=== PATIENT | male | born 1960 | race Caucasian/White ===

== ENCOUNTER 2018-01-17 15:06 | Observation (INO) ==
--- NOTE | 2018-01-17 15:16 | Emergency Department Note ---
Disposition Clinical Impression: Third degree heart block Disposition: Admitted As Inpatient Condition: Undetermined Referrals: Suleman Brown MD [Primary Care Provider] - Forms: ED Satisfaction Letter General Adult HPI - General Chief complaint: ED Arrhythmia/Palpitations Stated complaint: sob,dizzy,abnormal ekg Time Seen by Provider: 01/17/18 15:11 - Related Data Previous Rx's Medication Instructions Recorded Aspirin 81 mg PO DAILY 30 Days #30 tab.chew 12/16/17 HydrOXYzine 10 mg PO DAILY 30 Days #30 tablet 12/16/17 Allergies Allergy/AdvReac Type Severity Reaction Status Date / Time No Known Allergies Allergy Verified 01/17/18 15:43 Past Medical History - Past Medical History Medical history: Reports: no medical history Psychiatric history: Reports: no psych history - Social History Smoking Status: Never smoker Smokeless Tobacco Status: No Alcohol use: Reports: occasionally Drug use: Reports: none Course Vital Signs O2 Sat by Pulse Oximetry 99 01/17/18 15:38 Temperature 0 F L 01/17/18 15:39 Pulse Rate 46 01/17/18 15:39 Respiratory Rate 16 01/17/18 15:39 Blood Pressure 157/73 01/17/18 15:39 O2 Sat by Pulse Oximetry 99 01/17/18 15:39 Oxygen Delivery Oxygen Delivery Room Air Medical Decision Making - Lab Data Result diagrams: 01/17/18 15:15 Lab Results 01/17/18 Range/Units 15:15 WBC 7.3 (4.3-11.1) K/mcL RBC 4.66 (4.19-5.50) M/mcL Hgb 15.5 (12.9-16.9) g/dL Hct 45.2 (37.5-50.1) % MCV 97.0 (83.0-100.0) fL MCH 33.3 (28.0-33.3) pg MCHC 34.3 (31.6-35.5) g/dL RDW 13.7 (11.5-14.5) % Plt Count 255 (140-400) K/mcL MPV 9.7 (9.4-12.4) fL Immature Gran % 0.4 (0-4) % Seg Neutrophils % 65.9 % Lymphocytes % 19.0 % Monocytes % 11.9 % Eosinophils % 1.8 % Basophils % 1.0 % Neutrophils # 4.8 (1.6-8.9) K/mcL Lymphocytes # 1.4 (0.6-4.6) K/mcL Monocytes # 0.9 (0.0-1.3) K/mcL Eosinophils # 0.1 (0.0-0.6) K/mcL Basophils # 0.1 (0.0-0.2) K/mcL Attestation Statement - Attestation Attestation: I examined this patient and my medical decision-making was reviewed with the Resident Physician. I agree with the documented findings, disposition and treatment plan as described except to the extent set forth below. 57-year-old male presents to the emergency department because of recurring episodes of lightheadedness, dizziness and near syncope. Complains symptoms worsen when he exerts himself and has associated cold sensation in his hands with dyspnea. No chest pain or pressure. He has had a couple episodes of syncope. Denies fevers or chills. No nausea vomiting. No diaphoresis. Recent admission to the hospital for an STEMI but did not require catheterization. Had a normal stress test. Generally well-appearing male in no apparent distress. He is awake, alert and talkative. Mucous membranes are moist. Neck supple. No JVD. No carotid bruits. Chest is clear to auscultation bilaterally. Cardiac exam is regular, bradycardic. Chest wall nontender. Abdomen soft, nondistended and nontender. Extremities well perfused, warm and dry. EKG reveals complete arterial ventricular dissociation with third-degree heart block and a junctional escape of 44 with narrow complex. Case was discussed with Dr. Shon Ruelas who came to the ED, evaluated the patient and will be taken straight to the catheter lab for placement of permanent dual-chamber pacer. The high probability of a clinically significant, sudden or life threatening deterioration of the [cardiopulmonary] system(s) required my full and direct attention, intervention and personal management. The aggregate critical care time was [20] minutes. This time is in addition to time spent performing reported procedures but includes the following: [n] Data Review and interpretation [n] Patient assessment and monitoring of vital signs [n] Documentation [n] Medication orders and management
--- NOTE | 2018-01-17 15:19 | Emergency Department Note ---
Disposition Clinical Impression: Third degree heart block Disposition: Admitted As Inpatient Condition: Undetermined Forms: ED Satisfaction Letter Time of Disposition: 15:35 General Adult HPI - General Chief complaint: ED Arrhythmia/Palpitations Stated complaint: sob,dizzy,abnormal ekg Time Seen by Provider: 01/17/18 15:11 Source: patient Mode of arrival: wheelchair Limitations: no limitations Nursing Notes Reviewed: Yes Vital Signs Reviewed: Yes - History of Present Illness HPI Narrative: 57-year-old male arrives to the emergency department as a transfer from cardiology office. The patient was found to be in complete heart block at cardiology office on EKG. The patient states that he was recently discharged from a recent stent at here in the hospital for syncope. The patient was found to be bradycardic. He was started on hydroxyzine for anxiety at that time. The patient states he has been taking medication as he is supposed to. The patient states that he has had intermittent episodes of shortness of breath, generalized weakness as well as intermittent episodes where he becomes short of breath. The patient denies any chest pains associated with it. He denies any other associated complaints other than some intermittent dizziness. The patient went to his cardiology office visit today and as when they found that he was in third-degree heart block. The patient was not found to be hypotensive but he does feel lightheaded. He denies any other complaints at this time. - Related Data Previous Rx's Medication Instructions Recorded Aspirin 81 mg PO DAILY 30 Days #30 tab.chew 12/16/17 HydrOXYzine 10 mg PO DAILY 30 Days #30 tablet 12/16/17 Allergies Allergy/AdvReac Type Severity Reaction Status Date / Time No Known Allergies Allergy Verified 12/13/17 17:47 All systems ED: reviewed and negative except as stated. Constitutional: Denies: fever ENT ED: Denies: congestion Cardiovascular: Reports: palpitations, dyspnea on exertion, syncope. Denies: chest pain, edema Respiratory: Reports: dyspnea Gastrointestinal: Denies: abdominal pain Genitourinary: Denies: urgency Musculoskeletal: Denies: back pain Neurological: Denies: headache, weakness Past Medical History - Past Medical History Attestation: Yes The following information was validated with the patient. Source: patient Medical history: Reports: no medical history Surgical history: Reports: non-contributory Psychiatric history: Reports: no psych history - Social History Smoking Status: Never smoker Smokeless Tobacco Status: No Alcohol use: Reports: occasionally Drug use: Reports: none Physical Exam - General Limitations: no limitations General appearance: alert, in no apparent distress - Head Head exam: atraumatic, normocephalic, normal inspection - Eye Eye exam: Present: normal appearance, PERRL, EOMI - ENT ENT exam: normal exam, normal oropharynx, mucous membranes moist - Neck Neck exam: Present: normal inspection, full ROM, trachea midline - Chest Chest inspection: Present: normal inspection, symmetric chest wall rise - Respiratory Respiratory exam: Present: normal lung sounds bilaterally - Cardiovascular Cardiovascular exam: Present: bradycardia, normal heart sounds - Abdominal Exam Abdominal exam: Present: soft, Non-Tender. Absent: tenderness, distention, guarding, rebound, rigidity - Extremities Exam Extremities exam: Present: normal inspection, full ROM. Absent: tenderness, pedal edema - Back Exam Back exam: Present: normal inspection, full ROM. Absent: tenderness - Neurological Exam Neurological exam: Present: alert, oriented X3 - Skin Skin exam: Present: warm, dry, intact, normal color Medical Decision Making - MDM Narrative Medical decision making narrative: Cardiology consulted and will see patient. Will take patient to laborer/key man for pacemaker placement by Dr. Ruelas. Patient agrees to plan. Labs currently obtained and pending. Repeat EKG in the ED continues to demonstrate third degree block. Narrow complex here in the ED. - Medical Records Medical records reviewed: Yes I reviewed the patient's medical records. - EKG Data EKG #1 EKG attestation: Yes I reviewed and interpreted this EKG. EKG results narrative: Heart rate 44 bpm. Third degree heart block noted. no ST elevation or depression.
[2018-01-17 15:41] LABS: Basophils # 0.1 K/mcL (0.0-0.2); Eosinophils # 0.1 K/mcL (0.0-0.6); Eosinophils % 1.8 %; Hematocrit 45.2 % (37.5-50.1); Hemoglobin 15.5 g/dL (12.9-16.9); Immature Granulocytes % 0.4 % (0-4); Lymphocytes # 1.4 K/mcL (0.6-4.6); Mean Corpuscular HGB Conc 34.3 g/dL (31.6-35.5); Mean Corpuscular Hemoglobin 33.3 pg (28.0-33.3); Mean Platelet Volume 9.7 fL (9.4-12.4); Monocytes # 0.9 K/mcL (0.0-1.3); Monocytes % 11.9 %; Neutrophils # 4.8 K/mcL (1.6-8.9); Platelet Count 255 K/mcL (140-400); Red Blood Count 4.66 M/mcL (4.19-5.50); Red Cell Distribution Width 13.7 % (11.5-14.5); Segmented Neutrophils % 65.9 %
[2018-01-17] MEDS ORDERED: CeFAZolin Syr 2,000MG/20 ML 2,000 MG/20 ML SYRINGE IVPB ONE (15:45)
--- NOTE | 2018-01-17 15:50 | Cardiology Consult Note ---
<Tiki Awan - Last Filed: 01/17/18 15:48> Date of Encounter: 01/17/18 Time of Encounter: 15:48 Assessment and Plan (1) Third degree heart block Current Visit: Yes Status: Acute Patient in third degree heart block on EKG. Basic laboratory analysis with chest x-ray obtained in ER. Plan to place pacemaker and admit to medicine team for further observation. Patient agrees with this plan. Discussion w patient/family: The assessment and plan as outlined above was discussed with the patient and/or family members who expressed understanding and agreement. All questions were answered. Thank you for involving us in the care of your patient. Please call with any questions. History of Present Illness Consult date: 01/17/18 Consult reason: Complete Heart Block History of present illness: Mr. Broussard is a 57 year old male with significant PMHx of syncope and NSTEMI in 12/08 presenting with third degree heart block. Patient was seen in November for a syncopal episode and diagnosed with NSTEMI. Patient was following up with cardiology today and found to be in third degree heart block and sent to ED. Patient states for the past three days he has been more tired than normal and has not been able to walk up stairs. Denies chest pain, pressure, or palpitations. EKG completed in cardiology clinic and ED show third degree heart block with rate of 44BPM. Past Med Surg Social Fam HX - Past Medical History Attestation: Yes The following information was validated with the patient. Medical history: no medical history Psychiatric history: no psych history - Past Surgical History Surgical History: non-contributory - Social History Smoking Status: Never smoker Smokeless Tobacco Status: No Alcohol use: occasionally Drug use: none Medications and Allergies Aspirin 81 mg PO DAILY 30 Days #30 tab.chew 12/16/17 [Rx] HydrOXYzine 10 mg PO DAILY 30 Days #30 tablet 12/16/17 [Rx] 3 Allergy/AdvReac Type Severity Reaction Status Date / Time No Known Allergies Allergy Verified 01/17/18 15:43 All Systems Review: The remainder of the systems were reviewed and are negative - Constitutional Constitutional: fatigue, no fever(s), no weight gain, no weight loss - EENT Eyes: no blurred vision, no loss of vision - Cardiovascular Cardiovascular: as per HPI - Respiratory Respiratory: no cough, no dyspnea, no wheezing - Gastrointestinal Gastrointestinal: no abdominal pain, no diarrhea, no nausea - Musculoskeletal Musculoskeletal: no abnormal gait, no muscle weakness - Integumentary Integumentary: no rash - Neurological Neurological: no abnormal speech, no focal weakness Physical Examination Vital Signs, Last 4 Hours Temp Pulse Resp BP Pulse Ox 01/17/18 15:39 0 F L 46 16 157/73 99 01/17/18 15:38 99 General: Conversant, No Apparent Distress HEENT: Atraumatic, Normocephaly, Mucus Membranes Moist Neck: No JVD, Normal carotid pulses Cardiac: Normal S1 and S2, No Murmur, Other (bradycardic, regular rhythm ) Lungs: Normal Breath Sounds, No Wheeze, Rales, Rhonchi Neuro: Alert and responsive, No focal deficits noted Abdomen: Soft, Non-Tender Skin: No rashes noted on visualized skin Musculoskeletal: No Chest Wall Tenderness Extremities: No Clubbing, No Cyanosis, No Edema, Normal Pulses Results 01/17/18 15:15 Lab Results 01/17/18 15:15 WBC 7.3 Hgb 15.5 Hct 45.2 Plt Count 255 - EKG Interpretation EKG results cardiology: personally reviewed Consult Discharge Plan - Plan <Shon Ruelas - Last Filed: 01/17/18 17:27> Date of Encounter: 01/17/18 - Attending Attestation I examined this patient and my medical decision-making was reviewed with the Resident Physician. I agree with the documented findings, disposition and treatment plan as described except to the extent set forth below. Presents with complete heart block, previous history of syncope. Assessment and Plan Discussion w patient/family: The assessment and plan as outlined above was discussed with the patient and/or family members who expressed understanding and agreement. All questions were answered. Thank you for involving us in the care of your patient. Please call with any questions. History of Present Illness History of present illness: Mr. Broussard is a 57 year old male All Systems Review: The remainder of the systems were reviewed and are negative Results 01/17/18 15:15 01/17/18 15:15
[2018-01-17 15:51] LABS: INR 1.2
[2018-01-17 15:54] LABS: Activated Partial Thrombo Time 31.2 Seconds (26.0-36.0)
[2018-01-17 15:56] LABS: BUN/Creatinine Ratio 23 (6-26); Blood Urea Nitrogen 21 mg/dL (6-20); Calcium 9.6 mg/dL (8.6-10.3); Carbon Dioxide 25 mEq/L (23-29); Chloride 106 mEq/L (98-107); Glucose 106 mg/dL (70-105); Magnesium 2.2 mg/dL (1.6-2.6); Osmolality,Calculated 289 (280-300); Potassium 4.3 mEq/L (3.5-5.1); Sodium 138 mEq/L (136-145); eGFR For African Americans > 60 (> 60); eGFR For Non-African Americans > 60 (> 60)
[2018-01-17] MEDS ORDERED: 0.9 % Sodium Chloride 500 ML ONE (16:03)
[2018-01-17] MEDS ORDERED: Water for inj. (sterile) 10 ML IV ONE (16:03)
[2018-01-17] MEDS ORDERED: *HR* Midazolam HCl 2 MG/2 ML VIAL ONE (16:06)
[2018-01-17] MEDS ORDERED: *HR* FentaNYL (PF) 100 MCG/2 ML VIAL ONE (16:06)
--- NOTE | 2018-01-17 16:06 | Pre-Sedation Evaluation ---
Pre-sedation evaluation - Pre-sedation checklist Date of procedure: 01/17/18 Procedure: Pacemaker Recent Vitals: Last Vital Signs Temp 0 F L 01/17/18 15:39 Pulse 46 01/17/18 15:39 Resp 16 01/17/18 15:39 BP 157/73 01/17/18 15:39 Pulse Ox 99 01/17/18 15:39 H&P (including ROS) documented in medical record: Yes Previous reaction to sedatives/anesthetics: No Dietary Status: No solid food in preceding 4 hrs and no liquid in preceding 2 hrs Airway Assessment: Patient can open mouth completely, TMJ function normal Possible difficult airway: No ASA Classification *see protocol: CLASS II-Mild systemic disease Plan of Care: Pt appropriate candidate for procedure/moderate/conscious sedation , Risks/benefits of procedure/sedation discussed w/ patient/family
[2018-01-17] MEDS ORDERED: 0.9 % Sodium Chloride 1,000 ML ONE (16:07)
[2018-01-17 16:10] LABS: Thyroid Stimulating Hormone 2.538 mcIU/mL (0.340-5.600)
[2018-01-17 16:14] LABS: Troponin I 0.04 ng/mL (< 0.04)
[2018-01-17] MEDS ORDERED: Naloxone 0.4 MG/ML INJ IVP PRN (18:56)
[2018-01-17] MEDS ORDERED: *HR* LORazepam 2 MG/ML VIAL IVP PRN (19:03)
--- NOTE | 2018-01-17 19:39 | Internal Med History&Physical ---
<HilaryjeanmarielauraInderjit jose - Last Filed: 01/17/18 20:00> Date of Encounter: 01/17/18 Time of Encounter: 18:30 Internal Medicine - H&P: HPI Chief complaint: Palpitations/SOB Admitted From: Direct Admit Plans for Post Hospital Care: Home History of present illness: Mr. Broussard is a 57 year old male with no medical history presents from cardiology office to ED when it was discovered he had complete heart block on EKG. Patient states he has been increasingly short of breath, bradycardic, and fatigued over the past several weeks. Patient also reports he is under a lot of stress at home. Symptoms would lessen with rest but were exacerbated with mild exertion. Patient denies chest pain. Patient reported feelings of being lightheaded and dizzy as well. Patient denies recent illness, fever, chills, nausea, vomiting, headache, changes in vision, unusual bleeding, abdominal pain , diarrhea, constipation, numbness, tingling, pre-syncope, or syncope. Past Med Surg Social Fam HX - Past Medical History Source: patient, old records reviewed Medical history: no medical history Psychiatric history: anxiety - Past Surgical History Surgical History: non-contributory - Social History Smoking Status: Never smoker Smokeless Tobacco Status: No Alcohol use: occasionally Drug use: none Occupational status: employed Current living situation: Home Activity Level: Independent ambulation Recent Out of Country Travel Within the Last 8 Weeks: No Exposure or Possible Exposure to Illness During Travel: No - Family History Father Race: Family Member Ethnicity: Non- Living Status: Still Living Hx Family Cardiac Disorders: Yes (HTN, HLD, NE @ 70 yo w/stents) Mother Race: Family Member Ethnicity: Non- Living Status: Still Living Hx Family Neurologic Disorders: Yes (Dementia) Internal Medicine - H&P: Meds Aspirin 81 mg PO DAILY 30 Days #30 tab.chew 12/16/17 [Rx] HydrOXYzine 10 mg PO DAILY 30 Days #30 tablet 12/16/17 [Rx] 3 Allergy/AdvReac Type Severity Reaction Status Date / Time No Known Allergies Allergy Verified 01/17/18 15:43 All Systems PM: A 10-system review of systems was performed and is negative for pertinent findings except as documented above in the HPI. - Constitutional Constitutional: as per HPI, fatigue, weakness, no chills, no fever(s), no night sweats - EENT Eyes: no change in vision, no discharge, no pain, no photophobia Ears: no ear discharge, no ear pain, no tinnitus Nose, mouth and throat: no dysphagia, no nasal discharge, no neck pain, no sore throat - Breasts Breasts: as per HPI - Cardiovascular Cardiovascular ROS IM: as per HPI, dyspnea, dyspnea on exertion, irregular heart rhythm, lightheadedness, no chest pain, no diaphoresis, no palpitations, no syncope - Respiratory Respiratory: as per HPI, dyspnea, dyspnea on exertion, no cough, no wheezing, no excessive phlegm production - Gastrointestinal Gastrointestinal: no abdominal pain, no diarrhea, no hematemesis, no hematochezia, no melena, no nausea, no vomiting - Genitourinary Genitourinary ROS male: as per HPI - Musculoskeletal Musculoskeletal ROS IM: no numbness, no tingling - Integumentary Integumentary IM: no rash, no unusual bruising - Neurological Neurological ROS: as per HPI, weakness, no confusion, no convulsions, no focal weakness, no numbness, no tingling, no tremor(s) - Psychiatric Psychiatric: as per HPI, anxiety - Endocrine Endocrine IM: as per HPI - Hematologic/Lymphatic Hematologic/Lymphatic: no easy bruising - Allergic/Immunologic Allergic/Immunologic: as per HPI - Constitutional Vitals: Temp Pulse Resp BP Pulse Ox 98.2 F 91 16 147/84 95 01/17/18 18:52 01/17/18 18:52 01/17/18 18:52 01/17/18 18:52 01/17/18 18:52 General appearance: Present: cooperative, A&O X 3, pleasant, no acute distress, answers questions appropriately - Head Head exam: Present: atraumatic, normocephalic - Eye Eye exam: Present: PERRL, conjuntiva pink, sclera anicteric Pupils: Present: PERRL - ENT ENT exam: Present: normal exam - Neck Neck exam general surgery: Present: normal inspection, supple, trachea midline. Absent: lymphadenopathy - Respiratory Respiratory exam: Present: CTAB. Absent: accessory muscle use, rales, rhonchi, wheezes - Cardiovascular Cardiovascular exam: Present: RRR, +S1, +S2. Absent: diastolic murmur, gallop, rubs, systolic murmur - GI/Abdominal GI/Abdominal exam: Present: normal bowel sounds, soft, no peritoneal signs. Absent: distended, tenderness - Rectal Rectal exam: Present: deferred - Additional comments: exam deferred. - Extremities Exam Extremities exam: Present: warm, radial pulses palpable and symmetrical. Absent : calf tenderness, cyanotic, pedal edema - Back Exam Back exam: Present: normal inspection - Neurological Exam Neurological exam: Present: CN II-XII intact, oriented X3, no focal deficits. Absent: pronater drift, facial droop, speech deficit - Psychiatric Psychiatric exam: Present: normal affect, normal mood - Skin Skin exam: Present: dry, intact Internal Med - H&P Results - Labs CBC & Chem 7: 01/17/18 15:15 01/17/18 15:15 - EKG Data Prior EKG available for review: yes EKG comments: 01/17/18 19:43 EKG dated 01/17/18 14:45 shows idioventricular rhythm and abnormal ECG. EKG dated 01/17/18 15:16 shows idioventricular rhythm and abnormal ECG. - Impressions ITS Impressions Chest X-Ray 01/17/18 17:13 IMPRESSION: 1. Interval placement left-sided pacer device with no pneumothorax identified. D/ / Collins Zamudio MD / Collins Zamudio MD Interpreting Provider: Collins Zamudio MD - Diagnostic Studies Chest x-ray Additional comments: Impressions Chest X-Ray 01/17/18 15:15 IMPRESSION: Minimal left basilar atelectasis or scar. Otherwise no acute process. D/ / 01/17/2018 15:36:11 Jeffery Collazo MD / giancarlo Interpreting Provider: Jeffery Collazo MD Chest X-Ray 01/17/18 17:13 IMPRESSION: 1. Interval placement left-sided pacer device with no pneumothorax identified. D/ / Collins Zamudio MD / Collins Zamudio MD Interpreting Provider: Collins Zamudio MD - Assessment and plan (1) Third degree heart block Current Visit: Yes Status: Acute Assessment and plan: Acute third degree heart block on EKG found on office visit to [employer] office today. Pacemaker placed. Pt. denies CP, SOB, or cardiac sx. Reports feeling 100% better since placement. Continuous cardiac telemetry. Repeat EKG. Initial troponin 0.04 on admission. Will trend and monitor for CP or cardiac sx. Supplemental O2 w/titration and SpO2 monitoring PRN. Falls/safety precautions, up with assist, and bed rest w/bathroom privileges w/assist only. Cardiology to follow pt. Cefazolin IVPB ordered per Cardiology for infection coverage for post-procedure status today. Monitor pt. and f/u labs. Pt. discussed w/Dr. Manzano who agrees w/plan of care. Pt. is moderate risk for further morbidity and cardiac event based on previous third degree heart block today, new placement of pacemaker, familial hx of CAD (father), and current anxiety/stress in home life. Observation. (2) SOB (shortness of breath) Current Visit: Yes Status: Acute Assessment and plan: Acute SOB for the past several weeks d/t heart block. Pt. reports he became syncopal at work approx. 1 month ago. No repeat episodes. Prior to Pacemaker today, pt. reports becoming dyspneic w/mild exertion. On exam, pt. states he feels 100% better and denies SOB. Supplemental O2 w/titration and SpO2 monitoring PRN. (3) Elevated troponin Current Visit: Yes Status: Acute Assessment and plan: Acutely elevated troponin of 0.04 on admission today most likely d/t combination of third degree heart block. We will trend 2. Pt. currently denies any CP or cardiac sx. (4) Bradycardia Current Visit: Yes Status: Acute Assessment and plan: Acute bradycardia for the past two weeks. Pt. 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 Pacemaker placed. Continuous cardiac telemetry. Repeat EKG. Monitor patient closely. (5) DVT prophylaxis Current Visit: Yes Status: Acute Assessment and plan: Bilateral SCDs on patient's LEs for DVT prophylaxis. (6) Anxiety Current Visit: Yes Status: Acute Assessment and plan: Acute anxiety regarding home life situation. Pt. states he is under a lot of stress regarding personal issues. Continue hydroxyzine. Add Ativan 0.5 mg IVP ONCE PRN if needed. - Time Spent With Patient Total time spent is greater than 50% in coordination of care (as documented) at patient's floor/unit and/or counseling patient: 25 - 35 minutes <Triny Manzano - Last Filed: 01/17/18 21:31> Date of Encounter: 01/17/18 Internal Medicine - H&P: HPI History of present illness: Mr. Broussard is a 57 year old male All Systems PM: A 10-system review of systems was performed and is negative for pertinent findings except as documented above in the HPI. - Constitutional Vitals: Temp Pulse Resp BP Pulse Ox 98.2 F 91 16 147/84 95 01/17/18 18:52 01/17/18 18:52 01/17/18 18:52 01/17/18 18:52 01/17/18 18:52 Internal Med - H&P Results - Labs CBC & Chem 7: 01/17/18 15:15 01/17/18 15:15 - Impressions ITS Impressions Chest X-Ray 01/17/18 17:13 IMPRESSION: 1. Interval placement left-sided pacer device with no pneumothorax identified. D/ / Collins Zamudio MD / Collins Zamudio MD Interpreting Provider: Collins Zamudio MD - Attending Attestation Examining the patient, reviewed the note and agree with plan of care. - Assessment and plan (1) Third degree heart block Current Visit: Yes Status: Acute (2) SOB (shortness of breath) Current Visit: Yes Status: Acute (3) DVT prophylaxis Current Visit: Yes Status: Acute (4) Elevated troponin Current Visit: Yes Status: Acute (5) Bradycardia Current Visit: Yes Status: Acute (6) Anxiety Current Visit: Yes Status: Acute - Time Spent With Patient Total time spent is greater than 50% in coordination of care (as documented) at patient's floor/unit and/or counseling patient:
[2018-01-17] MEDS: Acetaminophen 325 MG TABLET PO PRN (22:09)
[2018-01-18] MEDS: CeFAZolin Pre 2,000 MG/100 ML 2,000 MG/100 ML BAG IVPB SCH ×2 (00:27→09:42)
[2018-01-18] MEDS: Acetaminophen 325 MG TABLET PO PRN (03:59)
[2018-01-18 04:04] LABS: Basophils % 0.6 %; Eosinophils # 0.1 K/mcL (0.0-0.6); Hematocrit 38.6 % (37.5-50.1); Immature Granulocytes % 0.3 % (0-4); Lymphocytes # 0.9 K/mcL (0.6-4.6); Lymphocytes % 13.5 %; Mean Corpuscular HGB Conc 34.5 g/dL (31.6-35.5); Mean Corpuscular Hemoglobin 32.7 pg (28.0-33.3); Mean Corpuscular Volume 94.8 fL (83.0-100.0); Mean Platelet Volume 9.3 fL (9.4-12.4); Monocytes # 0.7 K/mcL (0.0-1.3); Monocytes % 11.3 %; Neutrophils # 4.6 K/mcL (1.6-8.9); Platelet Count 207 K/mcL (140-400); Red Blood Count 4.07 M/mcL (4.19-5.50); Red Cell Distribution Width 13.6 % (11.5-14.5); Segmented Neutrophils % 72.3 %
[2018-01-18 04:05] LABS: Hemoglobin 13.3 g/dL (12.9-16.9)
[2018-01-18 04:23] LABS: Alanine Aminotransferase 48 Units/L (7-52); Albumin 3.7 g/dL (3.5-5.7); Albumin/Globulin Ratio 1.7 (1.1-2.2); Alkaline Phosphatase 57 Units/L (34-104); Aspartate Amino Transferase 29 Units/L (13-39); BUN/Creatinine Ratio 24 (6-26); Bilirubin,Total 1.2 mg/dL (0.3-1.0); Blood Urea Nitrogen 18 mg/dL (6-20); Calcium 8.6 mg/dL (8.6-10.3); Carbon Dioxide 23 mEq/L (23-29); Chloride 107 mEq/L (98-107); Chol/HDL Ratio 3.9 (0-4.9); Cholesterol 172 mg/dL (< 200); Globulin 2.2 g/dL (2.4-3.5); Glucose 87 mg/dL (70-105); HDL Cholesterol 44 mg/dL (40-59); LDL Cholesterol,Calculated 108 mg/dL (0-99); Magnesium 2.1 mg/dL (1.6-2.6); Osmolality,Calculated 285 (280-300); Potassium 3.8 mEq/L (3.5-5.1); Sodium 137 mEq/L (136-145); Total Protein 5.9 g/dL (6.4-8.9); Triglycerides 100 mg/dL (< 150); eGFR For African Americans > 60 (> 60); eGFR For Non-African Americans > 60 (> 60)
[2018-01-18 04:24] LABS: BUN/Creatinine Ratio 22 (6-26); Blood Urea Nitrogen 18 mg/dL (6-20); Carbon Dioxide 24 mEq/L (23-29); Chloride 108 mEq/L (98-107); Potassium 3.9 mEq/L (3.5-5.1); Sodium 138 mEq/L (136-145); eGFR For African Americans > 60 (> 60); eGFR For Non-African Americans > 60 (> 60)
[2018-01-18 06:27] VITALS: BP 122/76
[2018-01-18] MEDS ORDERED: Aspirin 81 MG TAB.CHEW PO SCH (09:00)
--- NOTE | 2018-01-18 11:38 | Cardiology Progress Note ---
Date of Encounter: 01/18/18 Time of Encounter: 10:00 Assessment and Plan (1) Third degree heart block Current Visit: Yes Status: Acute Per cardiology: -Admitted for third degree heart block. -S/p PPM yesterday. -Chest x-rays without evidence of pneumothorax -Device check reviewed with local customer care representative J[employer], states device normal with no events. -POst device implantation education reviewed with patient. -Cardiology will sign off and will follow in outpateint setting. Follow up set. (2) Elevated troponin Current Visit: Yes Status: Acute Per cardiology: -Troponins 0.04, 0.16, 0.13 in the setting of complete heart block. -Denies chest pain. -NO ischemic ECG changes. -Recent TTE 12/14/17 with LVEF preserved, no segmental wall motion abnormalities. -Do not suspect nSTEMI, suspect demand ischemia related to above. NO cardiac rehab consult warranted. -WIll continue to follow in outpateint setting. Follow up set. Discussion w patient/family: The assessment and plan as outlined above was discussed with the patient who expressed understanding and agreement. All questions were answered. Thank you for involving us in the care of your patient. Please call with any questions. Discussed and reviewed with Dr.Jennifer Ruelas. ACTIVITY: Moderate activity for the next 7 days. No lifting more than 5 pounds ( gallon of milk) for 4-6 weeks. Avoid lifting your arm on the same side as the device for 4 weeks. BATHING /SHOWERING: Do not remove the large bandage over the site for 2 days. Do not allow the device to get wet for 7-10 days. You may bathe/shower, but do not use soap and water on the site. When bathing, keep the site dry by covering with Saran wrap or a towel. WOUND CARE: The white steri-strips will start to peel away and come off after 14 days, or your doctor will remove them after [address] anything into or on top of the incision. Do not use cotton swabs. Do not use any antibiotic ointment or Vitamin E on the site. REMINDERS: You may use electrical devices, such as, microwaves, hair dryers, electric razors, electric blankets, etc. as long as they are in good condition and kept 6 -8 inches away from the device. It is recommended to use cell phones on the opposite side of your device. Notify security personnel at the airport that you have a device before you go through airport security screening. When at places with security monitors, such as a grocery store, do not linger near these monitors. It is fine to walk past them in a normal manner. Refer to your owners manual for more specific directions. CARRY YOUR PACEMAKER/ICD CARD WITH YOU AT ALL TIMES Return to work as instructed per physician Resume driving as instructed per physician Keep all scheduled follow up appointments Resume medications as instructed Contact [facility] ( ) if: You develop excessive bleeding from insertion or wound site not controlled by applying pressure You develop a fever greater than 101 degrees Fahrenheit Your incision becomes reddened at or around the site Your incision develops yellowish or greenish drainage or development of white pimple-like bumps You experience excessive pain You develop swelling in your ankles You experience muscle switching You develop excessive hiccupping If you experience chest pain, shortness of breath, dizziness, or extreme tiredness, stop the activity and rest. Please notify [facility] office if you experience any of these symptoms and they are not relieved by rest please call 911! Subjective Principal diagnosis: third degree heart block Interval history: Patient denies complaints today. States he feels well. Objective Vital Signs O2 Sat by Pulse Oximetry 99 01/17/18 15:38 Temperature 97.9 F 01/18/18 06:27 Pulse Rate 83 01/18/18 06:27 Respiratory Rate 16 01/18/18 06:27 Blood Pressure 122/76 01/18/18 06:27 O2 Sat by Pulse Oximetry 98 01/18/18 06:27 Oxygen Delivery Oxygen Delivery Room Air General: Conversant, No Apparent Distress HEENT: Atraumatic, Normocephaly, Mucus Membranes Moist Neck: No JVD, Normal carotid pulses Cardiac: Reg Rate and Rhythm, Normal S1 and S2, No Murmur Lungs: Normal Breath Sounds, No Wheeze, Rales, Rhonchi Neuro: Alert and responsive, No focal deficits noted Abdomen: Soft, Non-Tender Skin: No rashes noted on visualized skin, Other (Left chest steri-strips intact. Dressing removed. ) Musculoskeletal: No Chest Wall Tenderness Extremities: No Clubbing, No Cyanosis, No Edema, Normal Pulses Results 01/18/18 03:07 01/18/18 03:07 Lab Results Impressions Chest X-Ray 01/17/18 15:15 IMPRESSION: Minimal left basilar atelectasis or scar. Otherwise no acute process. D/ / 01/17/2018 15:36:11 Jeffery Collazo MD / giancarlo Interpreting Provider: Jeffery Collazo MD Chest X-Ray 01/17/18 17:13 IMPRESSION: 1. Interval placement left-sided pacer device with no pneumothorax identified. D/ / Collins Zamudio MD / Collins Zamudio MD Interpreting Provider: Collins Zamudio MD Chest X-Ray 01/18/18 06:00 IMPRESSION: No pneumothorax or consolidation Nonspecific subtle prominence of peripheral interstitial markings D/ / Remy Devi / Remy Devi Interpreting Provider: Remy Devi Active Medications Acetaminophen (Tylenol) 650 mg PO Q6HR PRN PRN Reason: Mild Pain/Fever Stop: 07/19/18 18:57 Last Admin: 01/18/18 03:59 Dose: 650 mg Aspirin (Aspirin) 81 mg PO DAILY [facility] Stop: 07/20/18 09:01 Last Admin: 01/18/18 09:42 Dose: 81 mg Hydroxyzine HCl (Hydroxyzine) 10 mg PO DAILY [facility] Stop: 07/20/18 09:01 Last Admin: 01/18/18 09:42 Dose: 10 mg Lorazepam (Ativan) 0.5 mg IVP ONCE PRN PRN Reason: Anxiety Stop: 07/19/18 19:04 Naloxone HCl (Narcan) 0.4 mg IVP Q2MIN PRN PRN Reason: SEE COMMENTS Stop: 07/19/18 18:57 Laboratory Tests 01/17/18 01/17/18 01/18/18 15:15 20:57 03:07 Hgb Creatinine 0.83 Troponin I 0.04 H* 0.16 H* 01/18/18 01/18/18 03:07 03:07 Hgb 13.3 D Creatinine Troponin I 0.13 H* - Imaging and Cardiology Chest Xray: report reviewed Echo: report reviewed Consult Discharge Plan - Plan Referrals: Suleman Brown MD [Primary Care Provider] -
--- NOTE | 2018-01-18 15:34 | Discharge Summary ---
- NOTES TO OUTPATIENT PROVIDER Notes to Outpatient Provider: follow-up with cardiology as advised Orders not resulted at time of discharge: Pending orders 01/18/18 03:07 A1C [Hgb A1C] AM 0400 01/19/18 04:00 Complete Blood Count [HEME] AM 0400 Comprehensive Metabolic Panel AM 0400 01/20/18 04:00 Complete Blood Count [HEME] AM 0400 Comprehensive Metabolic Panel AM 0400 Date of Encounter: 01/18/18 Time of Encounter: 15:30 - Discharge Diagnosis (1) Third degree heart block Priority: Primary Status: Acute Assessment and Plan: Nuclear exercise stress test negative on 12/16/2017. Status post permanent pacemaker. Follow-up with cardiology as advised (2) SOB (shortness of breath) Priority: Primary Status: Resolved (3) Elevated troponin Priority: Secondary Status: Acute Assessment and Plan: Demand ischemia related. (4) Anxiety Priority: Secondary Status: Acute Assessment and Plan: Acute anxiety regarding home life situation. Pt. states he is under a lot of stress regarding personal issues. Continue hydroxyzine. Add Ativan 0.5 mg IVP ONCE PRN if needed. Hospital course: Mr. Broussard is a 57 year old male who was seen in clinic by cardiology and noted to have a third-degree heart block. He was admitted to our hospital for placement of a permanent pacemaker. Apparently he did have a prior cardiac workup including exercise nuclear stress test in late November 2017 which was negative. His course was uneventful and he will see cardiology in clinic. Discharge discussed with: patient - Time Spent with Patient Total time spent providing and/or coordinating discharge services: Less than 30 minutes - Discharge Medications Home Medications: Aspirin 81 mg PO DAILY 30 Days #30 tab.chew 12/16/17 [Rx] HydrOXYzine 10 mg PO DAILY 30 Days #30 tablet 12/16/17 [Rx] Allergies/Adverse Reactions: 3 Allergy/AdvReac Type Severity Reaction Status Date / Time No Known Allergies Allergy Verified 01/17/18 15:43 Date of admission: 01/17/18 16:06 Primary care physician: Suleman Brown MD Consults: 01/17/18 19:00 Consult to Diecast Machine Operator [CONS] Routine Reason for SW Consult: Please assess patient for possible home needs for post -discharge planning. Discharging clinician: Boubacar Black Anticipated date of discharge: 01/10/18 - Constitutional Vitals: Temp Pulse Resp BP Pulse Ox 97.9 F 83 16 122/76 98 01/18/18 06:27 01/18/18 06:27 01/18/18 06:27 01/18/18 06:27 01/18/18 06:27 General appearance: Present: cooperative, A&O X 3, pleasant, no acute distress, answers questions appropriately Exam: Physical exam Gen: Comfortable, laying in bed, in no visible distress HEENT: Normocephalic, atraumatic. No conjunctival icterus. Moist oral mucosa. Neck: Supple Lungs: Clear to auscultation, no foreign sounds Heart: Normal S1-S2, no murmurs rubs or gallops Abdomen: Normoactive bowel sounds, no guarding rigidity or tenderness Extremities: No edema clubbing or cyanosis Neuro: Alert oriented 3, no focal deficits Skin: No skin lesions - Patient Status Disposition: Home, Self-Care Condition: Good Overall status at discharge: patient is back to baseline - Discharge Instructions Follow Up With: Suleman Brown MD [Primary Care Provider] - Additional Instructions: ACTIVITY: Moderate activity for the next 7 days. No lifting more than 5 pounds ( gallon of milk) for 4-6 weeks. Avoid lifting your arm on the same side as the device for 4 weeks. BATHING /SHOWERING: Do not remove the large bandage over the site for 2 days. Do not allow the device to get wet for 7-10 days. You may bathe/shower, but do not use soap and water on the site. When bathing, keep the site dry by covering with Saran wrap or a towel. WOUND CARE: The white steri-strips will start to peel away and come off after 14 days, or your doctor will remove them after [address] anything into or on top of the incision. Do not use cotton swabs. Do not use any antibiotic ointment or Vitamin E on the site. REMINDERS: You may use electrical devices, such as, microwaves, hair dryers, electric razors, electric blankets, etc. as long as they are in good condition and kept 6 -8 inches away from the device. It is recommended to use cell phones on the opposite side of your device. Notify security personnel at the airport that you have a device before you go through airport security screening. When at places with security monitors, such as a grocery store, do not linger near these monitors. It is fine to walk past them in a normal manner. Refer to your owners manual for more specific directions. CARRY YOUR PACEMAKER/ICD CARD WITH YOU AT ALL TIMES Return to work as instructed per physician Resume driving as instructed per physician Keep all scheduled follow up appointments Resume medications as instructed Contact [facility] ( ) if: You develop excessive bleeding from insertion or wound site not controlled by applying pressure You develop a fever greater than 101 degrees Fahrenheit Your incision becomes reddened at or around the site Your incision develops yellowish or greenish drainage or development of white pimple-like bumps You experience excessive pain You develop swelling in your ankles You experience muscle switching You develop excessive hiccupping If you experience chest pain, shortness of breath, dizziness, or extreme tiredness, stop the activity and rest. Please notify [facility] office if you experience any of these symptoms and they are not relieved by rest please call 911! - Diet and Activity Activity: ambulate only with your walker, increase activity as tolerated Diet: advance to your usual diet
[2018-01-19 08:30] LABS: Estimated Average Glucose 108 mg/dl; Hemoglobin A1C 5.4 %
--- NOTE | 2018-01-21 15:54 | Electrocardiograph Report ---
[address] [address] Test Date: 2018-01-17 Pat Name: Khoa Broussard Department: 102 Room: [facility] Gender: M Communications Engineer: [facility] : 1960 Requested By: Inderjit Vogel Order Number: [id number] Reading MD: Flynn Davalos Measurements Intervals [place] Rate: 44 P: [place]: 0 QRS: 89 QRSD: 119 T: 43 QT: 459 QTc: 410 Interpretive Statements Complete heart block Borderline right bundle brancb block Electronically Signed On 01-21-2018 15:53:10 EDT by Flynn Davalos
== END 2018-01-18 16:51 | disposition home or self-care (01) ==
LOC: EMEROO 15:06 → 2NENU 15:06
PROVIDERS: ADMIT Internal Medicine; ATTEND Internal Medicine